=== PATIENT | female | born 1985 | race Caucasian/White ===

== ENCOUNTER 2016-10-27 14:12 | Emergency (ER) | payer MEDICAID | END 2016-10-27 15:54 | disposition home or self-care (01) | DX: M54.12 Radiculopathy, cervical region (principal); M54.41 Lumbago with sciatica, right side; S39.012A Strain of muscle, fascia and tendon of lower back, initial encounter; X58.XXXA Exposure to other specified factors, initial encounter; F17.200 Nicotine dependence, unspecified, uncomplicated; Z82.3 Family history of stroke; Z79.82 Long term (current) use of aspirin ==

== ENCOUNTER 2016-11-01 09:54 | Observation (INO) | payer MEDICAID ==
[2016-11-01] MEDS ORDERED: FAMOTIDINE 20 MG TABLET PO STA (12:15)
[2016-11-01] MEDS ORDERED: MAG HYDROX/AL HYDROX/SIMETH 30 ML UDC PO STA (12:15)
[2016-11-01] MEDS ORDERED: LIDOCAINE VISCOUS 2% 15 ML UDC MM STA (12:15)
[2016-11-01] MEDS ORDERED: MAG HYDROX/AL HYDROX/SIMETH 30 ML UDC ONE (12:21)
[2016-11-01] MEDS ORDERED: FAMOTIDINE 20 MG TABLET ONE (12:21)
[2016-11-01] MEDS ORDERED: LIDOCAINE VISCOUS 2% 15 ML UDC MM ONE (12:21)
[2016-11-01] MEDS ORDERED: HYDROmorphone 1 MG/ML SYRINGE IVP STA ×2 (14:20→15:06)
[2016-11-01] MEDS ORDERED: HYDROmorphone 1 MG/ML SYRINGE ONE ×2 (14:24→15:08)
[2016-11-01] MEDS ORDERED: PIPERACILLIN/TAZOBACTAM 3.375 GM in SODIUM CHLORIDE 0.9% MINIBAG 100 ML IV STA (15:06)
[2016-11-01] MEDS ORDERED: SODIUM CHLORIDE 0.9% 1,000 ML IV ONE ×2 (15:06→15:08)
[2016-11-01] MEDS ORDERED: SODIUM CHLORIDE 0.9% MINIBAG 100 ML IV ONE (15:08)
[2016-11-01] MEDS ORDERED: SODIUM CHLORIDE FLUSH 0.9% 10 ML SYRINGE IVP PRN (15:19)
[2016-11-01] MEDS ORDERED: oxyCODONE/ACET 5/325 Prepack 4 PO PRN (15:22)
[2016-11-01] MEDS ORDERED: ACETAMINOPHEN 325 MG TABLET PO PRN (15:22)
[2016-11-01] MEDS: ONDANSETRON 4 MG/2 ML VIAL IVP PRN ×2 (16:40→23:49)
[2016-11-01] MEDS: LACTATED RINGERS 1,000 ML IV SCH (16:40)
[2016-11-01] MEDS ORDERED: PIPERACILLIN/TAZOBACTAM 3.375 GM in SODIUM CHLORIDE 0.9% MINIBAG 100 ML IV SCH (17:00)
[2016-11-01] MEDS: oxyCOD/ACETAMIN 5 MG/325 MG TABLET PO PRN (19:22)
[2016-11-01] MEDS: SODIUM CHLORIDE FLUSH 0.9% 10 ML SYRINGE IVP SCH (21:10)
[2016-11-01] MEDS: PIPERACILLIN/TAZOBACTAM 3.375 GM in SODIUM CHLORIDE 0.9% MINIBAG 100 ML IV SCH (21:11)
[2016-11-01] MEDS: MORPHINE 2 MG/ML SYRINGE IVP PRN (23:42)
[2016-11-02] MEDS: LACTATED RINGERS 1,000 ML IV SCH ×2 (00:38→09:16)
[2016-11-02] MEDS: oxyCOD/ACETAMIN 5 MG/325 MG TABLET PO PRN ×2 (03:43→08:57)
[2016-11-02] MEDS: PIPERACILLIN/TAZOBACTAM 3.375 GM in SODIUM CHLORIDE 0.9% MINIBAG 100 ML IV SCH ×2 (03:44→11:04)
[2016-11-02] MEDS: SODIUM CHLORIDE FLUSH 0.9% 10 ML SYRINGE IVP SCH ×2 (05:12→14:07)
[2016-11-02] MEDS: MORPHINE 2 MG/ML SYRINGE IVP PRN ×2 (06:11→13:26)
[2016-11-02] MEDS: ONDANSETRON 4 MG/2 ML VIAL IVP PRN (06:11)
[2016-11-02] MEDS ORDERED: MIDAZOLAM 2 MG/2 ML VIAL IVP ONE (10:00)
[2016-11-02] MEDS ORDERED: ONDANSETRON 4 MG/2 ML VIAL IVP ONE (10:00)
[2016-11-02] MEDS ORDERED: LIDOCAINE-MPF 2% 5 ML VIAL IM ONE (10:00)
[2016-11-02] MEDS ORDERED: fentaNYL 250 MCG/5 ML VIAL IVP ONE (10:00)
[2016-11-02] MEDS ORDERED: ROCURONIUM 50 MG/5 ML VIAL IVP ONE (10:00)
[2016-11-02] MEDS ORDERED: SUCCINYLCHOLINE 200 MG/10 ML VIAL IVP ONE (10:00)
[2016-11-02] MEDS ORDERED: raNITIdine INJ 25 MG/ML VIAL IV ONE (10:00)
[2016-11-02] MEDS ORDERED: NEOSTIGMINE 1 MG/1 ML 10 ML MDV IVP ONE (10:00)
[2016-11-02] MEDS ORDERED: SCOPOLAMINE PATCH TOP ONE (10:00)
[2016-11-02] MEDS ORDERED: DEXAMETHASONE 4 MG/ML VIAL IVP ONE (10:00)
[2016-11-02] MEDS ORDERED: PROPOFOL 200 MG/20 ML VIAL IVP ONE (10:00)
[2016-11-02] MEDS ORDERED: GLYCOPYRROLATE 1 MG/5 ML VIAL IVP ONE (10:00)
[2016-11-02] MEDS ORDERED: METOCLOPRAMIDE 10 MG/2 ML VIAL IVP ONE (10:00)
[2016-11-02] MEDS ORDERED: LACTATED RINGERS 1,000 ML IV ONE (10:18)
[2016-11-02] MEDS ORDERED: BUPIVACAINE 0.25%-EPI 1:200000 PF 30 ML VIAL SUBQ ONE (10:40)
[2016-11-02] MEDS: HYDROmorphone 1 MG/ML SYRINGE ONE ×2 (12:07→12:15)
[2016-11-02] MEDS: fentaNYL 100 MCG/2 ML VIAL ONE ×3 (12:31→12:46)
[2016-11-02] MEDS ORDERED: NICOTINE 14 MG PATCH TOP SCH (14:00)
== END 2016-11-02 15:25 | disposition home or self-care (01) ==
PROC: 0FT44ZZ Resection of Gallbladder, Percutaneous Endoscopic Approach (ICD-10-PCS; principal; 2016-11-02 09:49)
DX: K80.10 Calculus of gallbladder with chronic cholecystitis without obstruction (principal); M54.12 Radiculopathy, cervical region; M54.41 Lumbago with sciatica, right side; D68.9 Coagulation defect, unspecified; F17.210 Nicotine dependence, cigarettes, uncomplicated; E66.9 Obesity, unspecified; Z68.33 Body mass index [BMI] 33.0-33.9, adult; Z79.82 Long term (current) use of aspirin
CPT/HCPCS: 36415; 47562; 76705; 80053; 81003; 81025; 83690; 85025; 96375; 96376; 99284; A9270; G0378; J1170; J3010; J3490; J7120

== ENCOUNTER 2016-11-04 11:18 | Outpatient (CLI) | payer MEDICAID | END 2016-11-04 11:19 | disposition home or self-care (01) | DX: Z90.49 Acquired absence of other specified parts of digestive tract (principal) ==

== ENCOUNTER 2016-11-04 14:37 | Outpatient (CLI) | payer MEDICAID ==
[2016-11-04] MEDS ORDERED: IOPAMIDOL-300 50 ML VIAL PO ONE (16:15)
[2016-11-04] MEDS ORDERED: IOPAMIDOL-300 100 ML VIAL IVP ONE (16:15)
== END 2016-11-04 14:38 | disposition home or self-care (01) ==
DX: J98.11 Atelectasis (principal); R60.0 Localized edema; M51.27 Other intervertebral disc displacement, lumbosacral region; Z90.49 Acquired absence of other specified parts of digestive tract
CPT/HCPCS: 36415; 74177; 80053; 85025; Q9967

== ENCOUNTER 2016-12-31 17:43 | Emergency (ER) | payer MEDICAID ==
[2016-12-31 17:47] VITALS: BP 118/80
[2016-12-31] MEDS ORDERED: PROPARACAINE 0.5% OPHTH DROPS 15 ML ONE (18:10)
[2016-12-31] MEDS ORDERED: PROPARACAINE 0.5% OPHTH DROPS 15 ML EACHEYE STA (18:11)
--- NOTE | 2016-12-31 18:13 | ED Physician Documentation ---
PD HPI OPHTHO - Stated complaint Stated Complaint: L EYE SWOLLEN/RED - Chief complaint Chief Complaint: Heent - History obtained from History obtained from: Patient, Family - History of Present Illness Timing - onset: Yesterday Timing - duration: Days (2) Timing - details: Gradual onset Pain level max: 4 Pain level now: 3 Location: Left Quality / character: Burning, Aching Associated symptoms: Redness, Swelling, Tearing, Discharge (clear). No: FB sensation, Photophobia, Double vision, Decreased vision, Loss of vision, Headache Contributing factors: No: Exposed to conjunctivitis, Recent URI, FB, UV light ( welding etc), Chemical exposure, acid, Chemical exposure, base, Wears glasses, Wears contacts Similar symptoms before: Has not had sx before Recently seen: Not recently seen Review of Systems Constitutional: denies: Fever, Chills Eyes: denies: Loss of vision Nose: denies: Rhinorrhea / runny nose, Congestion Respiratory: denies: Cough GI: denies: Abdominal Pain, Nausea, Vomiting Skin: denies: Rash Musculoskeletal: denies: Neck pain, Back pain PD PAST MEDICAL HISTORY - Past Medical History Cardiovascular: None Respiratory: None Neuro: Headache/migraine Endocrine/Autoimmune: None GI: Chronic constipation, Cholelithiasis : None HEENT: None Psych: None Musculoskeletal: Fatigue, Chronic back pain Derm: Eczema, Psoriasis - Past Surgical History Past Surgical History: 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 HEENT: Myringotomy (tubes), Tonsil/Adenoidectomy - Present Medications Home Medications: Ambulatory Orders Medication Instructions Recorded Confirmed Aspirin 1 tab PO DAILY 12/31/16 12/31/16 - Allergies Allergies/Adverse Reactions: Allergies Allergy/AdvReac Type Severity Reaction Status Date / Time No Known Drug Allergies Allergy Verified 12/31/16 17:46 - Social History Does the pt smoke?: Yes Smoking Status: Current every day smoker Does the pt drink ETOH?: No Does the pt have substance abuse?: No - Immunizations Immunizations: TDAP >10years/unknown PD ED PE NORMAL - Vitals Vital signs reviewed: Yes - General General: Alert and oriented X 3, No acute distress - HEENT HEENT: PERRL, EOMI, Moist mucous membranes, Other (Conjunctival injection bilaterally. Clear drainage. No eyelid swelling. No fluorescein uptake. Pupils equal round reactive to light. Eyelids were everted without evidence of foreign body) - Neck Neck: Supple, no meningeal sign - Derm Derm: Warm and dry - Neuro Neuro: Alert and oriented X 3 Results - Vitals Vitals: Vital Signs - 24 hr 12/31/16 17:45 Temperature 36.4 C L Heart Rate 90 Respiratory 17 Rate Blood Pressure 118/80 O2 Saturation 100 Oxygen O2 Source Room air PD MEDICAL DECISION MAKING - ED course Complexity details: considered differential, d/w patient ED course: Patient presents to the emergency department what appears to be a viral conjunctivitis. This started in the left eye and is now spread to the right eye as well. Clear drainage. No purulence. Will trial on Zaditor eyedrops for home. No evidence of bacterial secondary infection. Patient is very well- appearing, nontoxic. No evidence of foreign body. Or corneal abrasion. Patient counseled regarding signs and symptoms for which I believe and urgent re- evaluation would be necessary. Patient with good understanding of and agreement to plan and is comfortable going home at this time This document was made in part using voice recognition software. While efforts are made to proofread this document, sound alike and grammatical errors may occur. Departure - Departure Disposition: 01 Home, Self Care Clinical Impression: Viral conjunctivitis of left eye Condition: Good Instructions: ED Conjunctivitis Nonspecific Follow-Up: your,doctor in 1 week [Other] Comments: Try zaditor eye drops, these are over the counter. Return if you worsen. Discharge Date/Time: 12/31/16 18:29
== END 2016-12-31 18:29 | disposition home or self-care (01) ==
LOC: ED 17:43
DX: H10.89 Other conjunctivitis (principal); B97.89 Other viral agents as the cause of diseases classified elsewhere; F17.200 Nicotine dependence, unspecified, uncomplicated
CPT/HCPCS: 99283; J3490

== ENCOUNTER 2017-05-08 15:19 | Emergency (ER) | payer MEDICAID ==
[2017-05-08] MEDS ORDERED: PROPARACAINE 0.5% OPHTH DROPS 15 ML EACHEYE STA (16:42)
[2017-05-08] MEDS ORDERED: PROPARACAINE 0.5% OPHTH DROPS 15 ML ONE (16:55)
--- NOTE | 2017-05-08 17:02 | ED Physician Documentation ---
History of Present Illness - Stated complaint Stated Complaint: LFT EYE IRRITATION - Chief complaint Chief Complaint: Heent - Additonal information Additional information: hx from pt L eye pain thinks it may be a scratch though no trauma recalled causing her a FREEMAN does not wear contacts Review of Systems Eyes: reports: Irritation : denies: Now EGA Neurologic: reports: Headache PD PAST MEDICAL HISTORY - Past Medical History Past Medical History: Yes Cardiovascular: None Respiratory: None Neuro: Headache/migraine Endocrine/Autoimmune: None GI: Chronic constipation, Cholelithiasis : None HEENT: None Psych: None Musculoskeletal: Fatigue, Chronic back pain Derm: Eczema, Psoriasis - Past Surgical History Past Surgical History: Yes 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 HEENT: Myringotomy (tubes), Tonsil/Adenoidectomy - Present Medications Home Medications: Ambulatory Orders Medication Instructions Recorded Confirmed Aspirin 1 tab PO DAILY 12/31/16 12/31/16 Erythromycin Base [Erythromycin] 1 applic OP Q4H #1 tub 05/08/17 Naproxen 500 mg PO BID PRN #10 tablet 05/08/17 - Allergies Allergies/Adverse Reactions: Allergies Allergy/AdvReac Type Severity Reaction Status Date / Time No Known Drug Allergies Allergy Verified 12/31/16 17:46 - Social History Does the pt smoke?: Yes Smoking Status: Current every day smoker Does the pt drink ETOH?: No Does the pt have substance abuse?: No - Immunizations Immunizations are current?: No Immunizations: TDAP >10years/unknown - POLST Patient has POLST: No PD ED PE NORMAL - Vitals Vital signs reviewed: Yes - HEENT HEENT: PERRL, EOMI, Other (VA noted 20/50 L, mild injection on L, no dc now but was noted by pt 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, pain fully relieved with proparacaine, no abrasion or FB seen, no flare, fundus benign, pressure 15, no TA TTP) Results - Vitals Vitals: Vital Signs - 24 hr 05/08/17 15:22 Temperature 36.6 C Heart Rate 101 H Respiratory 16 Rate Blood Pressure 137/91 H O2 Saturation 100 Oxygen O2 Source Room air PD MEDICAL DECISION MAKING - ED course ED course: exam shows no FB or abrasion or signs of iritis, nl pressure and no TA TTP and pt noted dc earlier so presume conjunctivitis Departure - Departure Disposition: 01 Home, Self Care Clinical Impression: Conjunctivitis Qualifiers: Conjunctivitis type: acute Acute conjunctivitis type: unspecified Laterality: left Qualified Code(s): H10.32 - Unspecified acute conjunctivitis, left eye Condition: Good Instructions: ED Conjunctivitis Nonspecific Follow-Up: Andrey Gil MD [Provider Admit Priv/Credential] - (if not better by Thursday ) Prescriptions: Erythromycin Base [Erythromycin] 1 applic OP Q4H #1 tub Naproxen 500 mg PO BID PRN #10 tablet PRN Reason: Pain Comments: Please follow up with your PMD to recheck your blood pressure - it was high today
[2017-05-08] MEDS ORDERED: NAPROXEN 250 MG TABLET PO STA (17:44)
[2017-05-08 18:08] VITALS: BP 113/81
== END 2017-05-08 18:07 | disposition home or self-care (01) ==
LOC: ED 15:19
DX: H10.32 Unspecified acute conjunctivitis, left eye (principal); F17.200 Nicotine dependence, unspecified, uncomplicated
CPT/HCPCS: 99283; J3490

== ENCOUNTER 2017-08-04 10:46 | Emergency (ER) | payer SELFPAY ==
[2017-08-04 10:59] VITALS: BP 138/88
[2017-08-04] MEDS ORDERED: LIDOCAINE PATCH 5% TOP STA (11:59)
[2017-08-04] MEDS ORDERED: DEXAMETHASONE 10 MG/ML VIAL PO STA (11:59)
[2017-08-04] MEDS ORDERED: CHERRY SYRUP 10 ML UDC PO ONE (12:12)
--- NOTE | 2017-08-04 12:26 | ED Physician Documentation ---
History of Present Illness - Stated complaint Stated Complaint: LT SHOULDER/NECK PX - Chief complaint Chief Complaint: General - Additonal information Additional information: hx from pt 31 f denies preg awoke with L neck and trap pain and tightness few days ago tried NSAIDs ice heat s relief some tingling fingers otherwise not numb or weak no fever Review of Systems Constitutional: denies: Fever Cardiac: denies: Chest pain / pressure Respiratory: denies: Dyspnea : denies: Now EGA Neurologic: denies: Focal weakness, Numbness PD PAST MEDICAL HISTORY - Past Medical History Cardiovascular: None Respiratory: None Neuro: Headache/migraine Endocrine/Autoimmune: None GI: Chronic constipation, Cholelithiasis : None HEENT: None Psych: None Musculoskeletal: Fatigue, Chronic back pain Derm: Eczema, Psoriasis - Past Surgical History Past Surgical History: Yes 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 HEENT: Myringotomy (tubes), Tonsil/Adenoidectomy - Present Medications Home Medications: Ambulatory Orders Medication Instructions Recorded Confirmed Aspirin 1 tab PO DAILY 12/31/16 08/04/17 Erythromycin Base [Erythromycin] 1 applic OP Q4H #1 tub 05/08/17 08/04/17 Naproxen 500 mg PO BID PRN #10 tablet 05/08/17 08/04/17 Cyclobenzaprine [Flexeril] 10 mg PO TID PRN #20 tablet 08/04/17 Lidocaine Patch 5% [Lidoderm Patch] 1 each TOP DAILY PRN #10 patch 08/04/17 predniSONE [Deltasone] 20 mg PO [id number] #21 tab 08/04/17 - Allergies Allergies/Adverse Reactions: Allergies Allergy/AdvReac Type Severity Reaction Status Date / Time No Known Drug Allergies Allergy Verified 12/31/16 17:46 - Social History Does the pt smoke?: Yes Smoking Status: Current every day smoker Does the pt drink ETOH?: No Does the pt have substance abuse?: No - Immunizations Immunizations are current?: No Immunizations: TDAP >10years/unknown - POLST Patient has POLST: No PD ED PE NORMAL - Vitals Vital signs reviewed: Yes - HEENT HEENT: Ears normal, Dentition benign, Other (no mastoid TTP) - Neck Neck: Supple, no meningeal sign, No bony TTP, Other (TTP lateral left neck to trap region with some limited ROm and spasm, no redness or warmth) - Cardiac Cardiac: RRR - Respiratory Respiratory: No respiratory distress, Clear bilaterally - Abdomen Abdomen: Soft, Non tender - Neuro Neuro: Alert and oriented X 3, No motor deficit, No sensory deficit, Other ( strong radial pulse, brisk cap refill) Results - Vitals Vitals: Vital Signs - 24 hr 08/04/17 10:51 Temperature 36.3 C L Heart Rate 100 Respiratory 18 Rate Blood Pressure 138/88 H O2 Saturation 100 Oxygen O2 Source Room air Departure - Departure Disposition: 01 Home, Self Care Clinical Impression: Muscle spasms of neck Condition: Good Instructions: ED Spasm Neck No Injury Prescriptions: Cyclobenzaprine [Flexeril] 10 mg PO TID PRN #20 tablet PRN Reason: Spasms Lidocaine Patch 5% [Lidoderm Patch] 1 each TOP DAILY PRN #10 patch PRN Reason: Pain predniSONE [Deltasone] 20 mg PO [id number] #21 tab Comments: Do not take motrin naproxen etc while on the prednisone Follow up with your PMD as needed Return if worse Forms: Activity restrictions
== END 2017-08-04 12:35 | disposition home or self-care (01) ==
LOC: ED 10:46
DX: M62.838 Other muscle spasm (principal); Z79.82 Long term (current) use of aspirin; F17.200 Nicotine dependence, unspecified, uncomplicated
CPT/HCPCS: 99283; A9270

== ENCOUNTER 2019-07-19 11:52 | Outpatient (CLI) | payer OTHER ==
--- NOTE | 2019-07-20 10:50 | XRAY Report ---
Reason: RT FOOT PAIN Procedure Date: 07/19/2019 Accession Number: [id number] / [id number] Procedure: XR - Foot 3 View RT CPT Code: Final Report FULL RESULT: EXAM: RIGHT FOOT RADIOGRAPHY EXAM DATE: 07/19/2019 12:19 PM. CLINICAL HISTORY: RT FOOT PAIN. COMPARISON: None. TECHNIQUE: 3 views. FINDINGS: Bones: No fractures or bone lesions. Joints: No subluxations. Soft Tissues: Mild diffuse soft tissue swelling. IMPRESSION: Diffuse soft tissue swelling. No fracture or subluxation. RADIA
== END 2019-07-19 11:53 | disposition home or self-care (01) ==
LOC: DI 11:52
PROVIDERS: ATTEND Physician Assistant
DX: M79.671 Pain in right foot (principal); R22.41 Localized swelling, mass and lump, right lower limb

== ENCOUNTER 2020-11-28 06:40 | Outpatient (CLI) | payer OTHER ==
--- NOTE | 2020-11-28 10:52 | Ultrasound Report ---
PROCEDURE: Pelvic w/Transvaginal INDICATIONS: MENORRHAGIA TECHNIQUE: Real-time scanning was performed of the pelvic organs, with image documentation. Additional endovagi nal scanning was necessary due to incomplete visualization of the adnexal and endometrial structures by transabdominal scanning. COMPARISON: Prior abdomen/pelvis CT 11/04/2016 FINDINGS: No pathologic free abdominal or pelvic fluid. Uterus: Uterus is normal in size at 4.0 x 5.5 x 7.6 cm. The endometrium measures 9.4 mm in combined thickness. Ovaries: Ovaries bilaterally appear normal, seen by transabdominal scanning, with no abnormal cystic or solid mass. The left 1.4 cm dimension follicular cyst is incidentally noted. IMPRESSION: Normal-appearing uterus, normal size ovaries, single follicular cyst left ovary measuring 1.4 cm in m aximal dimension. Reviewed by: Donald Smith MD on 11/28/2020 10:51 AM PDT Approved by: Donald Smith MD on 11/28/2020 10:51 AM PDT Station ID: [id number]
== END 2020-11-28 06:41 | disposition home or self-care (01) ==
LOC: DI 06:40
PROVIDERS: ATTEND Obstetrics & Gynecology
DX: N83.02 Follicular cyst of left ovary (principal)

== ENCOUNTER 2022-11-13 13:50 | Emergency (ER) | payer BC, OTHER ==
--- NOTE | 2022-11-13 14:17 | ED Physician Documentation ---
History of Present Illness - Stated complaint Stated Complaint: SOA, HEAD PX - Chief complaint Chief Complaint: Resp - History obtained from History obtained from: Patient - Additonal information Additional information: This is a 37-year-old female with no significant past medical history who presents with several weeks of intermittent headache, dizziness and shortness of breath. The patient believes that this is due to "black mold" exposure In the home which she is renting. Her has similar symptoms and they have been concerned about visible mold in their home. They have brought their concerns to the landlord But have apparently not come to any resolution. The mold has not been tested and it is not known if it is certainly black mold but they do notice mold in the house As well is high humidity and condensation. They are using dehumidifier agents and trying to stay out of the house whenever possible but they continue to have symptoms. They both have had similar symptoms over the last few weeks.She has not had a fever, no chills, no chest pain, no abdominal pain nausea vomiting or diarrhea. She has intermittent headaches for which she takes as needed Tylenol ibuprofen, she feels dizzy frequently. She also feels short of breath With occasional coughing and wheezing. She has no underlying Lung disease. Review of Systems Constitutional: reports: Reviewed and negative Eyes: reports: Reviewed and negative Ears: reports: Reviewed and negative Nose: reports: Reviewed and negative Throat: reports: Reviewed and negative Cardiac: reports: Reviewed and negative Respiratory: reports: Dyspnea, Cough, Wheezing. denies: Hemoptysis GI: reports: Reviewed and negative : reports: Reviewed and negative Skin: reports: Reviewed and negative Musculoskeletal: reports: Reviewed and negative Neurologic: reports: Headache, Other (Dizziness). 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 HEENT: Myringotomy (tubes), Tonsil/Adenoidectomy - Present Medications Home Medications: Ambulatory Orders Medication Instructions Recorded Confirmed Aspirin 1 tab PO DAILY 12/31/16 08/04/17 Erythromycin Base [Erythromycin] 1 applic OP Q4H #1 tub 05/08/17 08/04/17 Naproxen 500 mg PO BID PRN #10 tablet 05/08/17 08/04/17 Cyclobenzaprine [Flexeril] 10 mg PO TID PRN #20 tablet 08/04/17 Lidocaine Patch 5% [Lidoderm Patch] 1 each TOP DAILY PRN #10 patch 08/04/17 predniSONE [Deltasone] 20 mg PO [id number] #21 tab 08/04/17 Albuterol Sulf [Ventolin Hfa 1 - 2 puffs INH Q4HR PRN #1 each 11/13/22 Inhaler] - Allergies Allergies/Adverse Reactions: Allergies Allergy/AdvReac Type Severity Reaction Status Date / Time No Known Drug Allergies Allergy Verified 11/13/22 13:56 - Social History Does the pt smoke?: Yes Smoking Status: Current every day smoker Does the pt drink ETOH?: No Does the pt have substance abuse?: No - Immunizations Immunizations are current?: No Immunizations: TDAP >10years/unknown - POLST Patient has POLST: No PD ED PE NORMAL - Vitals Vital signs reviewed: Yes - General General: Alert and oriented X 3, No acute distress, Well developed/nourished - HEENT HEENT: Atraumatic, Moist mucous membranes, Pharynx benign - Neck Neck: Supple, no meningeal sign, No JVD - Cardiac Cardiac: RRR, No murmur, No gallop, No rub - Respiratory Respiratory: No respiratory distress, Clear bilaterally - Abdomen Abdomen: Normal bowel sounds, Soft, Non tender, Non distended - Derm Derm: Normal color, Warm and dry - Extremities Extremities: No deformity, No tenderness to palpate, No edema - Neuro Neuro: Alert and oriented X 3 Eye Opening: Spontaneous Motor: Obeys Commands Verbal: Oriented GCS Score: 15 Results - Vitals Vitals: Vital Signs - 24 hr 11/13/22 11/13/22 13:56 15:10 Temperature 36.5 C Heart Rate 98 77 Respiratory 20 16 Rate Blood Pressure 111/72 106/68 O2 Saturation 100 100 Oxygen O2 Source Room air PD Medical Decision Making - ED course Complexity details: reviewed results, re-evaluated patient, considered differential, d/w patient ED course: This is a 37-year-old female who presented With concerns for possible black mold exposure. Her and her have similar symptoms including headache, dizziness and shortness of breath. The patient is well-appearing on physical exam stable vital signs. She has clear lung sounds and I did obtain an x-ray which shows no acute findings. She does have headaches and dizziness but no focal neuro changes. I discussed with patient that these symptoms may be related to black mold exposure but can also be related to many types of mold exposure or other irritant exposure. Unfortunately the patient does not have the ability to find alternative housing at this time. And cannot afford any testing for the known mold or any medication treatment. Therefore recommended she try [id number] allergy medication as well as I will prescribe an as needed albuterol inhaler. I encouraged her to continue to work with her landlord to see if a solution can be made. If she has ongoing symptoms, recommended follow-up with primary provider for ongoing evaluation. Departure - Departure Disposition: 01 Home, Self Care Clinical Impression: Mold suspected exposure Condition: Good Instructions: Allergens Mold, ED Reactive Airway Disease Prescriptions: Albuterol Sulf [Ventolin Hfa Inhaler] 1 - 2 puffs INH Q4HR PRN #1 each PRN Reason: Shortness Of Air/Wheezing Comments: Please follow-up with your primary care provider and consider allergy testing or testing to determine if this is black mold versus other less toxic mold. Unfortunately there are no test to be done here in the ER To determine if this is mold exposure. Your chest x-ray is stable and your oxygen level here is normal. I have given you an inhaler to use as needed for your symptoms and you may consider trying [id number] allergy medication such as Zyrtec or similar. Discharge Date/Time: 11/13/22 15:11
--- NOTE | 2022-11-13 15:00 | XRAY Report ---
PROCEDURE: Chest 1 View X-Ray INDICATIONS: chest pain TECHNIQUE: One view of the chest was acquired. COMPARISON: None. FINDINGS: Surgical changes and devices: None. Lungs and pleura: No pleural effusions or pneumothorax. Lungs are clear. Mediastinum: Mediastinal contours appear normal. Heart size is normal. Bones and chest wall: No suspicious bony lesions. Overlying soft tissues appear unremarkable. IMPRESSION: No acute pulmonary process. Reviewed by: Peggy Mayen MD on 11/13/2022 2:58 PM PDT Approved by: Peggy Mayen MD on 11/13/2022 2:58 PM PDT Station ID: [id number]
[2022-11-13 15:11] VITALS: BP 106/68
== END 2022-11-13 15:11 | disposition home or self-care (01) ==
LOC: ED 13:50
DX: R51.9 Headache, unspecified (principal); R42 Dizziness and giddiness; R06.02 Shortness of breath; F17.200 Nicotine dependence, unspecified, uncomplicated
CPT/HCPCS: 99283